=== PATIENT | male | born 1980 | race Caucasian/White ===

== ENCOUNTER 2018-04-07 07:39 | Day surgery (SDC) | payer BC ==
[2018-04-07] MEDS ORDERED: diphenhydrAMINE 25 MG CAP PO ONE (07:42)
[2018-04-07] MEDS ORDERED: DIAZEPAM 5 MG TAB PO ONE (07:42)
[2018-04-07] MEDS ORDERED: ASPIRIN EC 325 MG TAB PO ONE (07:42)
[2018-04-07] MEDS ORDERED: NS 1,000 ML IV ONE (07:42)
[2018-04-07] MEDS ORDERED: FAMOTIDINE 20 MG TAB PO ONE (07:42)
--- NOTE | 2018-04-07 08:05 | CPEKG ---
Heart Rate: 72 RR Interval: 833 P-R Interval: 148 QRSD Interval: 86 QT Interval: 380 QTC Interval: 416 P Kaiser: 78 QRS Kaiser: -22 T Wave Kaiser: 70 EKG Severity - OTHERWISE NORMAL ECG - EKG Impression: SINUS RHYTHM EKG Impression: BORDERLINE LEFT AXIS DEVIATION Electronically Signed By: Robert Blandon 09-Apr-2018 21:12:21
[2018-04-07 08:26] LABS: PLATELET COUNT 155 10^3/uL (150-400)
[2018-04-07 08:39] LABS: INR 1.02 (0.83-1.16); PROTIME(PATIENT) 13.6 SEC (12.0-15.0)
--- NOTE | 2018-04-07 08:39 | PDPROPOC ---
Sedation Plan of Care Sedation Plan of Care: vital signs stable, mental status noted, patient educated of risks, benefits, alternatives, patient can tolerate sedation ASA Classification: ASA 3 Planned drugs: fentanyl, midazolam Mallampati Score: Class 3 Mallampati Reference Image: Patient passed 3-3-2 rule?: Yes
--- NOTE | 2018-04-07 08:40 | PDHPUP ---
History & Physical Update H&P update statement: This history and physical update is based on an assessment of the patient which was completed after admission or registration (within 24 hours), but prior to the surgery/procedure. H&P update: H&P reviewed & patient examined (patient with VSD and new palpitations changes suggestive of increasing QP QS needs cath to evaluate shunt. nyha class III symptoms), no change in patient's condition since H&P completed
[2018-04-07] MEDS ORDERED: MIDAZOLAM 2 MG/2 ML VIAL ONE ×2 (09:56→10:43)
[2018-04-07] MEDS ORDERED: fentaNYL 100 MCG/2 ML INJ ONE ×2 (09:56→10:43)
[2018-04-07] MEDS ORDERED: HEPARIN 10,000 UNIT/10 ML MDV (1,000 UNIT/ML) ONE (09:56)
[2018-04-07] MEDS ORDERED: VERAPAMIL 5 MG/2 ML VIAL ONE (09:56)
[2018-04-07] MEDS ORDERED: LIDOCAINE 1% 300 MG/30 ML SDV ONE (09:56)
[2018-04-07] MEDS ORDERED: IOPAMIDOL (ISOVUE-370) 150 ML BTL IV ONE (09:57)
--- NOTE | 2018-04-07 10:51 | PDDXCAT ---
Diagnostic Cath Note - . Date: 04/07/18 [place] Patcher: Yesica Indication: CCC Class III and IV angina on medical treatment, other (History of VSD, developed breathlessness, palpitations) - Procedure Access: left wrist Procedure: left heart catheterization, coronary angiography, left ventriculogram , right heart catheterization - Materials Left Heart Cath size: 5F Left Heart Cath materials: standard multipack (JL4, JR4, pigtail) Right Heart Cath size: 5F Right Heart Cath materials: PWP catheter - Findings-Left Heart Catheterization LM: The LM is 8mm in size and short. It bifurcates into and LAD and circumflex system. LAD: The LAD is 4 mm in size. RONEY III flow. LCX: The LCX is 3mm in size. There is no evidence of flow limiting obstruction. RCA: The RCA is 4mm in size and dominant. The RCA comes off the coronary cusp. There is not an anomalous coronary. There is no evidence of coronary disease. RONEY III flow. - Findings-Right Heart Catheterization RA: Mean pressure 8mmHg. Low RA sat: 83.2%. High RA sat: 82.7%. RV: RV pressure:38/4, end diastolic pressure is 10mmHg. RV saturation: 85.7% PA: Pressure: 37/15. Saturation: 86.4% PAOP: 12mmHg AO: 94.5% CO: 8.06 l/min CI: 4.11 l/min/m2 Complications: NONE. Estimated blood loss: <50ml Closure method: TR Band Assessment: 1. QPQS is 1.65 which is higher than estimated on echocardiogram. 2. No pumonary hypertension at this point. 3. No flow limiting obstruction of the coronary circulation. Plan: I will present the patient's case tomorrow at case conference. I do not think the patient needs to proceed with surgery at this time given that his pulmonary pressure is not elevated and his clinical symptoms of palpitations and breathlessness are likely manageable with low dose beta brigida. I think we should continue with the patient's current medical regimen. A cardiac MRI may be necessary to measure the shunt fraction. Certainly this will need to be carefully followed with at least annual echocardiogram to insure that the patient is not progressing towards pulmonary hypertension and right heart failure. Intervention: NONE.
[2018-04-07] MEDS ORDERED: ONDANSETRON 4 MG/2 ML VIAL IVP PRN (12:23)
[2018-04-07] MEDS ORDERED: HYDROCODONE/APAP 5/325 TAB PO PRN (12:23)
[2018-04-07] MEDS ORDERED: ATROPINE SULFATE 1 MG/10 ML SYR IVP PRN (12:23)
[2018-04-07] MEDS ORDERED: OXYCODONE/APAP 5/325 TAB PO PRN (12:23)
[2018-04-07] MEDS ORDERED: NITROGLYCERIN 0.4 MG BTL SL PRN (12:23)
== END 2018-04-07 17:20 | disposition home or self-care (01) ==
LOC: FCATH 07:39
PROVIDERS: ATTEND Internal Medicine Cardiovascular Disease
DX: Q21.0 Ventricular septal defect (principal); R00.2 Palpitations; R07.9 Chest pain, unspecified; I49.3 Ventricular premature depolarization; G47.33 Obstructive sleep apnea (adult) (pediatric); Z88.0 Allergy status to penicillin; Z88.2 Allergy status to sulfonamides
CPT/HCPCS: J1644; J2250; J3010; Q9967